=== PATIENT | male | born 1960 | race Caucasian/White ===

== ENCOUNTER 2021-07-16 00:44 | Emergency (ER) | payer OTHER ==
[2021-07-16 02:19] LABS: BASOPHIL 0.4 % (0-2); HCT 43.2 % (42.0-52.0); LYMPHOCYTE 34.1 % (15-48); MCH 31.4 pg (25.0-31.0); MCV 84.7 fL (78.0-100.0); MONOCYTE 8.8 % (0-12); MPV 9.8 fL (6.0-9.5); NEUTROPHIL 55.2 % (41-80); NRBC 0; PLT 228 K/uL (150-400); RDW 11.5 % (11.5-14.0); WBC 8.2 K/uL (4.0-10.5)
[2021-07-16 02:36] LABS: ALBUMIN 3.9 g/dL (3.4-5.0); BILIRUBIN - TOTAL 0.3 mg/dL (0.2-1.0); BUN/CREAT RATIO (CALC) 15.3 RATIO; CREATININE 0.85 mg/dL (0.67-1.17); GLOBULIN (CALCULATION) 3.5 g/dL; POTASSIUM 4.5 mmol/L (3.5-5.1); TOTAL PROTEIN 7.4 g/dL (6.4-8.2)
[2021-07-16] MEDS ORDERED: VENTOLIN HFA18 GM INH (03:21)
[2021-07-16] MEDS ORDERED: ANORO ELLIPTA1 EACH INH (03:21)
[2021-07-16] MEDS ORDERED: MEDROL 4MG DOSEP4 MG PO (03:21)
== END 2021-07-16 03:50 | disposition home or self-care (01) ==
LOC: FER 00:44
PROVIDERS: Emergency Medicine
DX: J44.1 Chronic obstructive pulmonary disease with (acute) exacerbation (principal); I10 Essential (primary) hypertension; I25.10 Atherosclerotic heart disease of native coronary artery without angina pectoris; F17.200 Nicotine dependence, unspecified, uncomplicated; Z88.5 Allergy status to narcotic agent; Z20.822 Contact with and (suspected) exposure to COVID-19
CPT/HCPCS: 36415; 71045; 80053; 84484; 85025; 93005; 94640; 94664; J7512; U0002